=== PATIENT | male | born 1990 | race Caucasian/White ===

== ENCOUNTER 2018-01-13 23:57 | Emergency (ER) | payer SELFPAY ==
[2018-01-14] VITALS: PULSE 110; TEMP 98.1
[2018-01-14] MEDS ORDERED: IPRATROPIUM/ALBUTEROL 3 ML DEYVIAL ONE (00:03)
[2018-01-14] MEDS ORDERED: IPRATROPIUM/ALBUTEROL 3 ML DEYVIAL IH ONE ×2 (00:03→00:36)
--- NOTE | 2018-01-14 00:07 | EDPHY ---
H & P Stated Complaint: asthma - Personal History Current Tetanus/Diphtheria Vaccine: Yes Current Tetanus Diphtheria and Acellular Pertussis (TDAP): Yes - Medical/Surgical History Hx Asthma: Yes Hx Chronic Respiratory Disease: No Hx Diabetes: No Hx Cardiac Disease: No Hx Renal Disease: No Hx Cirrhosis: No Hx Alcoholism: No Hx HIV/AIDS: No Hx Splenectomy or Spleen Trauma: No Other PMH: asthma - Social History Smoking Status: Never smoked Time Seen by Provider: 01/14/18 00:02 HPI/ROS: CHIEF COMPLAINT: "I am having an asthma attack" HISTORY OF PRESENT ILLNESS: 27-year-old male history of asthma, ran out of his albuterol meter dose inhaler, arrives via private vehicle complaining of dyspnea , acute asthma exacerbation like symptoms for the past 3 days. Patient's symptoms coincide with purchase of 2 parakeet birds newly introduced to their home a few days ago No history of hospitalizations or intubation for acute asthma exacerbation. Nonsmoker. No fever or chills. No URI symptoms. No sore throat. REVIEW OF SYSTEMS: A ten point review of systems was performed and is negative with the exception of the items mentioned in the HPI PAST MEDICAL & SURGICAL HISTORY: Asthma. SOCIAL HISTORY:Nonsmoker PHYSICAL EXAM (Prior to examination, patient consented to physical exam, hands were washed and my usual and customary physical exam procedures followed) 1) GENERAL: Well-developed, well-nourished, alert and oriented. Appears nontoxic. 2) HEAD: Normocephalic, atraumatic 3) HEENT: Pupils equal, round, reactive to light bilaterally. Sclera anicteric. Nasopharynx, oropharynx, clear, no lesions. No tonsillar enlargement or exudate Ears bilaterally with normal tympanic membranes. 4) NECK: Full range of motion, no meningeal signs. 5) LUNGS: Bilateral inspiratory and expiratory wheeze with no retractions. 6) HEART: Regular rate and rhythm, no murmur, no heave, no gallop. 7) ABDOMEN: No guarding, no rebound, no focal tenderness, 8) MUSCULOSKELETAL: Moving all extremities, no focal areas of tenderness, no obvious trauma. No peripheral edema or discoloration. 9) BACK: No CVA tenderness, no midline vertebral tenderness, no fluctuance, no step-off, no obvious trauma, no visual or palpable abnormality. 10) SKIN: No rash, no petechiae. 11) Psychiatric: Patient is oriented X 3, there is no agitation. DIFFERENTIAL DIAGNOSIS: In no particular include but limited to acute asthma exacerbation, PE, pneumothorax (Rohit,Donta Ariane) Constitutional: Initial Vital Signs Temperature (C) 36.7 C 01/13/18 23:59 Heart Rate 110 H 01/13/18 23:59 Respiratory Rate 20 01/13/18 23:59 Blood Pressure 126/82 H 01/13/18 23:59 O2 Sat (%) 88 L 01/13/18 23:59 O2 Delivery Mode Room Air Allergies/Adverse Reactions: No Known Allergies Allergy (Unverified 01/14/18 00:01) Home Medications: Medication Instructions Recorded Albuterol [Proventil Inhaler HFA 1 - 2 puffs IH Q4PRN PRN #1 mdi 01/14/18 (*)] predniSONE [Prednisone] 20 mg PO DAILY #15 tablet 01/14/18 Medical Decision Making ED Course/Re-evaluation: ED PA DICTATION I evaluated and participated in the management of the patient. I also evaluated the patient independently. My co-signature indicates that I have reviewed this chart and I agree with the findings and plan of care as documented. My personal H&P findings include: 27-year-old male with history of mild intermittent asthma presents with shortness of breath and wheezing. He was out of his albuterol inhaler. He has never been admitted to the hospital for asthma exacerbation or intubated. He was treated here with steroids, DuoNeb , albuterol. He did have desaturations when he ambulated. At about 3:00 a.m. I reassessed him and he is feeling better. He has improved. He has diminished wheezes now. As I believe he is suitable for discharge. He will go home with a prescription for prednisone and an albuterol inhaler. [facility] as he does not have a primary care doctor. He is in agreement with this plan. (Dennise Fox) 12:06 a.m.: This patient has an acute asthma exacerbation with saturations on room air of 88%. Plan will be breathing treatment, steroid, re-evaluation. Care of patient under supervision of secondary supervising physician Dr Fox. 12:35 a.m.: Patient has completed 1st DuoNeb, feeling significant improvement. He was requesting further DuoNeb and then feels that he would be able to be discharged home. 1:09 a.m.: Revaluation. He is feeling improvement. Maintaining saturations of 92% on room air. Will ambulate the patient and see how he responds and feels 1:30 a.m.: Patient has been ambulated around the emergency department and saturations dropped to 86% on room air any complaints of dyspnea. He is noted to have continued wheezing. Will administer continuous albuterol and re- evaluate. 1:45 am: Care turned over to Dr Fox, awaiting response to albuterol (Donta Bee) - Data Points Medications Given: Discontinued Medications Albuterol (Proventil Neb) 2.5 ml IH CONT ONE Stop: 01/14/18 01:29 Last Admin: 01/14/18 01:43 Dose: 3 ml Albuterol Sulfate (Proventil Inh Prepack) 1 mdi TAKEHOME EDNOW ONE Stop: 01/14/18 00:50 Last Admin: 01/14/18 01:44 Dose: 1 mdi Albuterol/Ipratropium (Duoneb) 3 ml IH EDNOW ONE Stop: 01/14/18 00:04 Last Admin: 01/14/18 00:05 Dose: 3 ml Albuterol/Ipratropium (Duoneb) 3 ml IH EDNOW ONE Stop: 01/14/18 00:37 Last Admin: 01/14/18 00:44 Dose: 3 ml Ibuprofen (Motrin) 800 mg PO EDNOW ONE Stop: 01/14/18 01:29 Last Admin: 01/14/18 01:42 Dose: 800 mg Prednisone (Prednisone) 60 mg PO EDNOW ONE Stop: 01/14/18 00:51 Last Admin: 01/14/18 01:27 Dose: 60 mg Departure - Departure Disposition: Home, Routine, Self-Care Clinical Impression: Exacerbation of asthma Qualifiers: Asthma severity: moderate Asthma persistence: unspecified Qualified Code(s): J45.901 - Unspecified asthma with (acute) exacerbation Condition: Good Instructions: Albuterol (By mouth), Asthma (ED) Additional Instructions: Return to the emergency department if you develop shortness of breath or any other symptoms that concern you Referrals: [facility],. [Clinic] - As per Instructions Prescriptions: Albuterol [Proventil Inhaler HFA (*)] 1 - 2 puffs IH Q4PRN PRN #1 mdi PRN Reason: Cough, Moderate predniSONE [Prednisone] 20 mg PO DAILY #15 tablet
[2018-01-14] MEDS ORDERED: ALBUTEROL INH PREPACK MDI TAKEHOME ONE (00:49)
[2018-01-14] MEDS ORDERED: predniSONE 20 MG TAB PO ONE (00:50)
[2018-01-14] MEDS ORDERED: ALBUTEROL 3 ML DEYVIAL IH ONE (01:28)
[2018-01-14] MEDS ORDERED: IBUPROFEN 200 MG TAB PO ONE (01:28)
[2018-01-14] MEDS ORDERED: ALBUTEROL 3 ML DEYVIAL ONE ×3 (01:39)
[2018-01-14 02:54] VITALS: BP 121/72; RESP 16; O2SAT 93
== END 2018-01-14 02:53 | disposition home or self-care (01) ==
DX: J45.901 Unspecified asthma with (acute) exacerbation (principal)
CPT/HCPCS: J7512; J7613